=== PATIENT | female | born 1960 | race Caucasian/White ===

== ENCOUNTER 2018-07-29 07:41 | Day surgery (SDC) | payer BC ==
[~2018-07-29] VITALS: Ht 154.9 cm; Wt 68.2 kg
[~2018-07-29 07:41] MED LIST: CHEMO DRUG IV; DEXL30CA3 PO; LACT1CAP65 PO
[2018-07-29] MEDS ORDERED: ANAS1TAB PO (07:58)
[2018-07-29] MEDS ORDERED: OMEP20CA10 PO (08:00)
[2018-07-29] MEDS ORDERED: thyroid PO (08:00)
[2018-07-29] MEDS ORDERED: calcium PO (08:01)
[2018-07-29] MEDS ORDERED: D3 PO (08:02)
[2018-07-29 08:12] VITALS: BP 168/82
[2018-07-29] MEDS ORDERED: fentaNYL/PF 50MCG/1 ML 2ML syringe ONE (08:14)
[2018-07-29] MEDS ORDERED: MIDAZolam 5mg/5ml vial ONE (08:14)
[2018-07-29] MEDS ORDERED: LIDOcaine Viscous 15ml cup ONE (08:39)
[2018-07-29 09:23] VITALS: BP 106/73
[2018-07-29 09:33] VITALS: BP 125/77
[2018-07-29 09:43] VITALS: BP 122/75
== END 2018-07-29 10:20 | disposition home or self-care (01) ==
LOC: GI LAB 07:41
PROVIDERS: ATTEND Specialist
DX: Z12.11 Encounter for screening for malignant neoplasm of colon (principal); K63.5 Polyp of colon; K62.1 Rectal polyp; K31.7 Polyp of stomach and duodenum; K57.30 Diverticulosis of large intestine without perforation or abscess without bleeding; K64.8 Other hemorrhoids; K21.9 Gastro-esophageal reflux disease without esophagitis; Z86.010 Personal history of colon polyps; Z88.2 Allergy status to sulfonamides; Z88.1 Allergy status to other antibiotic agents; Z72.89 Other problems related to lifestyle; Z90.13 Acquired absence of bilateral breasts and nipples; Z79.899 Other long term (current) drug therapy; Z98.890 Other specified postprocedural states
CPT/HCPCS: 43239; 45380; 99152; 99153; J2250; J3010; J7030; A4620; G0500